=== PATIENT | female | born 1990 | race Caucasian/White ===

== ENCOUNTER 2024-12-24 12:28 | Emergency (ER) | payer OTHER, SELFPAY ==
[2024-12-24 12:30] VITALS: BMI 29.9
[2024-12-24 12:34] VITALS: BP 119/86
[2024-12-24 12:51] LABS: Hematocrit 35.5 % (37.0-47.0); Hemoglobin 10.9 g/dL (12.0-16.0); Mean Corp Hgb Conc. 30.7 g/dL (33.0-37.0); Mean Corpuscular Volume 76.5 fL (81.0-99.0); Nucleated Red Blood Cells % 0 %; Platelet Count 348 10^3/uL (130-400); Red Cell Dist. Width 13.3 % (11.5-14.5)
[2024-12-24 13:02] LABS: ALT (SGPT) 13 U/L (0-35); AST (SGOT) 21 U/L (14-36); Albumin 4.3 g/dl (3.5-5.0); Alkaline Phosphatase 81 U/L (38-126); Blood Urea Nitrogen 17 mg/dl (7-17); Calcium 9.0 mg/dl (8.4-10.2); Carbon Dioxide 20 mmol/L (22-30); Chloride 101 mmol/L (98-107); Estimated Creatinine Clearance 77 ml/min; Glucose 126 mg/dl (70-99); Potassium 3.7 mmol/L (3.5-5.1); Sodium 133 mmol/L (135-145); Total Protein 7.8 g/dl (6.3-8.2); eGFR > 60.00
--- NOTE | 2024-12-24 13:18 | ED.GENMED ---
History of Present Illness
General
Chief Complaint: Vaginal Bleeding
Source: patient and other (assisted guards)
Exam Limitations: none
Time Seen by Provider: 12/24/24 13:12
Nursing documentation reviewed up to this point in time: agreed with
History of Present Illness
History of Present Illness:
Note:
CHIEF COMPLAINT(S)
Severe vaginal bleeding and dizziness.
HISTORY OF PRESENT ILLNESS
The patient is a 34-year-old female who reports experiencing intermittent severe vaginal bleeding, characterized as 'gushing blood,' leading to episodes where she feels dizzy, disoriented, and appears very pale. This bleeding was previously
identified by the [facility] during a physical examination, where a mass on the cervix was noted. The bleeding episodes have been significant enough to cause the patient to sit on the toilet for prolonged periods until the bleeding
ceases. The [facility] by a specific date, which was not facilitated by the [facility]. The patient also mentions having been treated with an antibiotic for an unspecified
vaginal infection, which caused adverse effects.
SOCIAL DETERMINANTS AFFECTING HEALTH
The patient notes challenges in accessing timely healthcare appointments, which were supposed to be arranged but were not completed by the correctional facility.
PHYSICAL EXAM
- General: Alert, no acute distress.
- Skin: Warm, dry.
- Head: Normocephalic, atraumatic.
- Neck: Supple, trachea midline.
- Eye, Ears, Nose, Mouth, and Throat: Oral mucosa moist.
- Cardiovascular: Normal peripheral perfusion, no edema.
- Respiratory: Respirations are non-labored.
- Gastrointestinal: Abdomen nondistended.
-: cervix friable, minimal bleeding noted, cervix closed
- Back: Normal range of motion, normal alignment.
- Musculoskeletal: Normal range of motion, normal strength.
- Neurological: Alert and oriented to person, place, time, and situation, no focal neurological deficit observed.
- Psychiatric: Cooperative, appropriate mood, and affect.
PLAN
1. Perform a physical examination to assess the current status of vaginal bleeding and cervix condition.
2. Consult with Dr. Machado or the attending physician to discuss potential findings and plan care accordingly.
3. Consider infectious etiologies and potential need for culture or further infection workup.
4. Discuss possible follow-up with a biomedical equipment specialist for further evaluation and management of the cervical mass and recurrent bleeding.
5. Ensure appropriate arrangements for subsequent medical appointments to be facilitated by the correctional facility.
DIFFERENTIAL DIAGNOSIS
The Differential Diagnosis includes, in no particular order and is not limited to:
1. Cervical polyp
2. Cervical cancer
3. Cervical ectropion
4. Vaginal infection
5. Endometrial hyperplasia
6. Fibroids
7. Coagulation disorder
8. Hormonal imbalances
9. Cervicitis
10. Trauma to the cervix
CARE-UPDATE
12/24/24 - 14:00
Minimal active bleeding observed during physical exam; cervix noted as very friable. Plan includes follow-up with gynecology oncology at [place] per discussion with Dr. Machado. Referral to Dr. Diaz will be provided by Karlie.
Disposition:
SUMMARY OF ENCOUNTER
The patient, a 34-year-old female, presented to the emergency department with severe vaginal bleeding and dizziness. During the visit, her condition was evaluated and a dose of tranexamic acid was administered to manage the bleeding. The likely
cause of the bleeding was discussed with Dr. Machado, who posited cervical cancer as a potential underlying cause. A follow-up with gynecology oncology was deemed necessary for further evaluation and management of a noted cervical mass.
DISPOSITION
Discharge to assisted.
ASSESSMENT
The vaginal bleeding is likely due to cervical cancer as discussed. Immediate follow-up with gynecologic oncology is recommended.
EMERGENCY TREATMENTS ADMINISTERED
Tranexamic acid was administered to manage acute vaginal bleeding.
MANAGEMENT OF THE PATIENTS CARE WAS DISCUSSED WITH
Dr. Machado, gynecology.
PLAN
The patient is referred to Dr. Diaz at [facility] for follow-up with gynecology oncology. She should continue with tranexamic acid and metronidazole, the latter for previously prescribed management of vaginitis.
MEDICATION RECONCILIATION
1. Tranexamic acid - dose administered in the emergency department.
2. Metronidazole - prescribed previously for vaginitis.
MEDICAL DECISION MAKING
- Complexity of Data Reviewed: Chronic conditions affecting care include intermittent severe vaginal bleeding suspected to be due to cervical cancer. DDx includes cervical polyp, cervical cancer, cervical ectropion, vaginal infection, endometrial
hyperplasia, fibroids, coagulation disorder, hormonal imbalances, cervicitis, trauma to the cervix.
- Data:
Category 3
Discussion of management with Dr. Machado, biomedical equipment specialist.
- Risk: Consideration of Admission/Observation: Although escalation of care was considered due to the potential severity of the underlying condition, the patients symptoms were controlled, and she was deemed stable for discharge. Social
determinants, such as challenges in accessing healthcare appointments, significantly affected her care.
DIAGNOSIS
Vaginal bleeding (ICD-10: N93.9) likely due to cervical cancer (ICD-10: C53.9).
Phy Exam
Physical Exam
Physical Exam:
.
Course
Orders/Labs/Results
Orders:
Orders
12/24/24 12:36
Type And Crossmatch [Type+Screen] Urgent
12/24/24 12:42
CBC/With Diff [Complete Blood Count/With Diff] Urgent
CMP [Comprehensive Metabolic Panel] Urgent
Abnormal Lab Results
12/24/24
12:42
WBC 11.1 H 10^3/uL
(4.8-10.8)
Hgb 10.9 L g/dL
(12.0-16.0)
Hct 35.5 L %
(37.0-47.0)
MCV 76.5 L fL
(81.0-99.0)
MCH 23.5 L pg
(27.0-31.0)
MCHC 30.7 L g/dL
(33.0-37.0)
Absolute Neuts (auto) 9.8 H 10^3/uL
(1.4-6.5)
Absolute Lymphs (auto) 0.7 L 10^3/uL
(1.2-3.4)
Neutrophils % 87.4 H %
(42.2-75.2)
Lymphocytes % 6.3 L %
(20.5-51.1)
Sodium 133 L mmol/L
(135-145)
Carbon Dioxide 20 L mmol/L
(22-30)
Creatinine 1.2 H mg/dL
(0.6-1.0)
Glucose 126 H mg/dl
(70-99)
12/24/24 12:42
12/24/24 12:42
Vital Signs
Initial and Last Documented VS:
Initial Vital Signs
Temp Pulse Resp BP Pulse Ox
99.4 F 118 15 119/86 97
12/24/24 12:34 12/24/24 12:34 12/24/24 12:34 12/24/24 12:34 12/24/24 12:34
Last Documented Vital Signs
Temp Pulse Resp BP Pulse Ox
99.4 F 118 13 119/86 96
12/24/24 12:34 12/24/24 12:35 12/24/24 12:35 12/24/24 12:34 12/24/24 13:18
*Pulse Oximetry
SaO2: 96
Oxygen Mode of Delivery: Room air
Patient hypoxic: no
*Critical Care Note
Total Time (30-74mins, 75-104mins- exclusive of procedures): Not Applicable
ED Attending Note
-
Portions of this chart may have been created with voice recognition software.� Occasional wrong word or��sound alike� substitutions may have occurred due to the inherent limitations of voice recognition software.
Discharge Plan
Departure
Patient Disposition: [facility]
Date of Disposition: 12/24/24
Time of Disposition: 13:56
Patient with high blood pressure during this ER visit?: No
Condition: Fair
Discharge Problem:
Vaginal bleeding
Instructions: Heavy Periods (DC)
Referrals:
[facility] [Family Provider, General]
Chantal Diaz MD [Non-Admitting Privileges, Gynecology] - Follow up in 2-3 days
Activity Restrictions/Additional Instructions:
Continue taking Lysteda, metronidazole. Follow up with Dr. Diaz at [place] as soon as possible.
Interventions
Interventions:
*Risk Screen - Suicide Last Done: 12/24/24 12:30
*General Assessment Last Done: 12/24/24 12:30
*Neglect/Abuse Screening Last Done: 12/24/24 12:30
*ED COVID-19 Vaccine History Last Done: 12/24/24 12:30
*ED Influenza Vaccine History Last Done: 12/24/24 12:30
ED-Female Genitourinary Assessment Last Done: 12/24/24 12:36
Discharge Date and Time
Print Language: KYRGYZ
[2024-12-24] MEDS: CYKLOKAPRON 650 MG PO (14:07)
== END 2024-12-24 15:00 ==
LOC: EMR 12:28
PROVIDERS: Emergency Medicine; EMERGENCY PHYSICIAN Emergency Medicine
DX: N93.9 Abnormal uterine and vaginal bleeding, unspecified (principal)
CPT/HCPCS: 99283; 80053; 85025

== ENCOUNTER 2025-01-07 07:17 | Inpatient (IN) | payer MEDICARE, OTHER, SELFPAY ==
[2025-01-04 09:59] VITALS: BP 113/97
--- NOTE | 2025-01-04 11:20 | ED.GENMED ---
History of Present Illness
<Rashmi Victoria MD, Resident - Last Filed: 01/04/25 15:45>
General
Chief Complaint: Abnormal Lab Value
Source: patient
Time Seen by Provider: 01/04/25 10:02
History of Present Illness
History of Present Illness:
34-year-old female with past medical history of endocarditis treated 8 years ago, herniated disks, and cervical mass currently being worked up outpatient presents to the ER for abnormal lab values outpatient. About 3 months ago, patient noted to
have vaginal bleeding. She was able to visit with a [facility] for examination where they found a mass on the cervix and bacterial vaginosis. She was treated with TXA and metronidazole after which she had significant diarrhea and
generally felt unwell. She came into the ER on December 24 because she felt dizzy, disoriented and appeared very pale. They recommended for her to continue current treatment and she was discharged.
About 1 week ago, the patient started to notice some left foot swelling and pain later having right foot swelling and pain. Then she noticed left knee swelling and pain and left thumb swelling and pain. The pain has been so intense in her
bilateral feet she has had difficulty ambulating. They ran labs while in care home on 12/31/24 and she was found to have a WBC 14.53, ESR 107, hg 8.9 and negative Lymes. SHe was brought in from care home due to abnormal labs.
She endorses 2 days of feeling warm but no recorded fever, some sweats at night, right chest pain with deep inspiration, numbness and tinging in her bilateral feet, left knee, left thumb. She denies any cough, runny nose, sore throat, N/V/D/ab pain,
dysuria, hematuria, melena, hematochezia, blurry vision or weakness.
Past History
<Rashmi Victoria MD, Resident - Last Filed: 01/04/25 15:45>
Past History
ED Past Medical History: Other (endocarditis, herniated disc L2/L3, cervical mass )
ED Past Surgical History: Other (R foot bone spur removal )
Social History
Tobacco: Smoker
Alcohol: None
Drug: IVDA
Living: care home
Family History
Family History: Diabetes, Hypertension and CAD
Review of Systems
<Rashmi Victoria MD, Resident - Last Filed: 01/04/25 15:45>
Review of Systems
Allergies reviewed?: Yes
Constitutional: Reports fatigue and night sweats
EENT: Reports no symptoms
Respiratory: Reports other (right sided chest pain with deep breaths )
Cardiac: Reports no symptoms
ABD/GI: Reports no symptoms
: Reports no symptoms
Musculoskeletal: Reports joint pain, joint swelling and edema
Skin: Reports no symptoms
Neurological: Reports headache
Endocrine: Reports no symptoms
Hematologic/Lymphatic: Reports no symptoms
Phy Exam
<Rashmi Victoria MD, Resident - Last Filed: 01/04/25 15:45>
Physical Exam
Physical Exam:
General: Comfortable, pale, conversant
Head: Atraumatic
Eyes: PERRLA
Cardiac: Regular S1, S2, no murmurs
Respiratory: Clear breath sounds bilaterally
Abdomen: Soft, nontender, nondistended, normal bowel sounds
Extremities: Very minimal bilateral pedal edema, tenderness with palpation of dorsum of bilateral feet, tenderness with dorsiflexion and plantarflexion. Tenderness with flexion extension of the knee. Diffuse tenderness with palpation. Tenderness
to palpation of Interphalangeal joint and movement of left thumb. No marked swelling or erythema of left thumb.
Course
<Rashmi Victoria MD, Resident - Last Filed: 01/04/25 15:45>
Orders/Labs/Results
Orders:
Orders
01/04/25 10:59
CR Finger(s)/thumb Min 2 Vw Lt Urgent
Comment:
Reason For Exam: pain, swelling
CR Foot - Left Min 3 Views Urgent
Comment:
Reason For Exam: pain, swelling
CR Foot - Right Min 3 Views Urgent
Comment:
Reason For Exam: pain, swelling
CR Knee - Left 4 Or More View* Urgent
Comment:
Reason For Exam: pain, swelling
01/04/25 11:07
Complete Blood Count/With Diff Urgent
Comprehensive Metabolic Panel Urgent
PTT Urgent
Prothrombin Time Urgent
01/04/25 11:38
Ibuprofen [Motrin] 600 mg PO NOW STA
01/04/25 14:20
Physical Therapy Consult [Pt Eval And Treat] Urgent
Activity Level: As Tolerated
01/04/25 15:09
CRP [C-Reactive Protein] Routine
Cyclic Citrullinat Pep IgG/IgA [S] Routine
ESR [Erythrocyte Sed Rate] Routine
Rheumatoid Factor [Rheumatoid Agglutinin] Routine
Uric Acid Routine
01/04/25 15:10
Admit/Transfer Patient As Directed
Co-Sign Provider:
Level of Care: Observation services
Assign to:: Medical/Surgical
Physician / Group: Shawna
Diagnosis: polyarthitis
PRN Pain Medication Management As Directed
May give lesser potent ordered pain med per pt: Yes
preference::
Protocol:: Medication orders for pain may be administered in a
manner that supports deferring to patient preference
when the pt is:
- Requesting an ordered lesser potent pain medication.
Least to most potent pain medications are defined
as: acetaminophen < NSAID < tramadol < opioids
(morphine, oxycodone, hydromorphone).
- Requesting a lesser dose of the same medication IF
ORDERED.
- Requesting a less intrusive route of administration
if both routes are prescribed by the provider (PO <
IV).
01/04/25 15:11
Code Status As Directed
Resuscitation Status: Full Code
01/04/25 15:15
Blood Culture Q30M
SUZANNE Source: Blood/Venous
Specimen Description:
01/04/25 15:19
US Legs, Bilateral [US Periph Venous LOWER Ext Jeremy] Urgent
Comment:
Reason For Exam: LE swelling, pain
01/04/25 15:45
Blood Culture Q30M
SUZANNE Source: Blood/Venous
Specimen Description:
Abnormal Lab Results
01/04/25
11:07
RBC 3.72 L 10^6/uL
(4.20-5.40)
Hgb 8.7 L g/dL
(12.0-16.0)
Hct 28.7 L %
(37.0-47.0)
MCV 77.2 L fL
(81.0-99.0)
MCH 23.4 L pg
(27.0-31.0)
MCHC 30.3 L g/dL
(33.0-37.0)
Plt Count 597 H 10^3/uL
(130-400)
Abs Immat Gran (auto) 0.1 H 10^3/uL
(0-0.05)
Absolute Neuts (auto) 7.0 H 10^3/uL
(1.4-6.5)
Lymphocytes % 19.4 L %
(20.5-51.1)
Carbon Dioxide 32 H mmol/L
(22-30)
BUN 20 H mg/dl
(7-17)
Albumin 3.3 L g/dl
(3.5-5.0)
01/04/25 11:07
01/04/25 11:07
Vital Signs
Initial and Last Documented VS:
Initial Vital Signs
Temp Pulse Resp BP Pulse Ox
98.2 F 96 18 113/97 97
01/04/25 09:59 01/04/25 09:59 01/04/25 09:59 01/04/25 09:59 01/04/25 09:59
Last Documented Vital Signs
Temp Pulse Resp BP Pulse Ox
98.2 F 96 18 113/97 97
01/04/25 09:59 01/04/25 09:59 01/04/25 09:59 01/04/25 09:59 01/04/25 11:26
<David De La Rosa MD - Last Filed: 01/04/25 14:28>
Orders/Labs/Results
Orders:
Orders
01/04/25 10:59
CR Finger(s)/thumb Min 2 Vw Lt Urgent
Comment:
Reason For Exam: pain, swelling
CR Foot - Left Min 3 Views Urgent
Comment:
Reason For Exam: pain, swelling
CR Foot - Right Min 3 Views Urgent
Comment:
Reason For Exam: pain, swelling
CR Knee - Left 4 Or More View* Urgent
Comment:
Reason For Exam: pain, swelling
01/04/25 11:07
Complete Blood Count/With Diff Urgent
Comprehensive Metabolic Panel Urgent
PTT Urgent
Prothrombin Time Urgent
01/04/25 11:38
Ibuprofen [Motrin] 600 mg PO NOW STA
01/04/25 14:20
Physical Therapy Consult [Pt Eval And Treat] Urgent
Activity Level: As Tolerated
01/04/25 15:09
CRP [C-Reactive Protein] Routine
Cyclic Citrullinat Pep IgG/IgA [S] Routine
ESR [Erythrocyte Sed Rate] Routine
Rheumatoid Factor [Rheumatoid Agglutinin] Routine
Uric Acid Routine
01/04/25 15:10
Admit/Transfer Patient As Directed
Co-Sign Provider:
Level of Care: Observation services
Assign to:: Medical/Surgical
Physician / Group: Shawna
Diagnosis: polyarthitis
PRN Pain Medication Management As Directed
May give lesser potent ordered pain med per pt: Yes
preference::
Protocol:: Medication orders for pain may be administered in a
manner that supports deferring to patient preference
when the pt is:
- Requesting an ordered lesser potent pain medication.
Least to most potent pain medications are defined
as: acetaminophen < NSAID < tramadol < opioids
(morphine, oxycodone, hydromorphone).
- Requesting a lesser dose of the same medication IF
ORDERED.
- Requesting a less intrusive route of administration
if both routes are prescribed by the provider (PO <
IV).
01/04/25 15:11
Code Status As Directed
Resuscitation Status: Full Code
01/04/25 15:15
Blood Culture Q30M
SUZANNE Source: Blood/Venous
Specimen Description:
01/04/25 15:19
US Legs, Bilateral [US Periph Venous LOWER Ext Jeremy] Urgent
Comment:
Reason For Exam: LE swelling, pain
01/04/25 15:45
Blood Culture Q30M
SUZANNE Source: Blood/Venous
Specimen Description:
Abnormal Lab Results
01/04/25
11:07
RBC 3.72 L 10^6/uL
(4.20-5.40)
Hgb 8.7 L g/dL
(12.0-16.0)
Hct 28.7 L %
(37.0-47.0)
MCV 77.2 L fL
(81.0-99.0)
MCH 23.4 L pg
(27.0-31.0)
MCHC 30.3 L g/dL
(33.0-37.0)
Plt Count 597 H 10^3/uL
(130-400)
Abs Immat Gran (auto) 0.1 H 10^3/uL
(0-0.05)
Absolute Neuts (auto) 7.0 H 10^3/uL
(1.4-6.5)
Lymphocytes % 19.4 L %
(20.5-51.1)
Carbon Dioxide 32 H mmol/L
(22-30)
BUN 20 H mg/dl
(7-17)
Albumin 3.3 L g/dl
(3.5-5.0)
01/04/25 11:07
01/04/25 11:07
Vital Signs
Initial and Last Documented VS:
Initial Vital Signs
Temp Pulse Resp BP Pulse Ox
98.2 F 96 18 113/97 97
01/04/25 09:59 01/04/25 09:59 01/04/25 09:59 01/04/25 09:59 01/04/25 09:59
Last Documented Vital Signs
Temp Pulse Resp BP Pulse Ox
98.2 F 96 18 113/97 97
01/04/25 09:59 01/04/25 09:59 01/04/25 09:59 01/04/25 09:59 01/04/25 11:26
<Rashmi Victoria MD, Resident - Last Filed: 01/04/25 15:45>
MDM/Problems Addressed
Differential Diagnosis Includes:
Pollymigratory arthritis, endocarditis, malignancy, autoimmune condition, clotting disorder
MDM/Problems Addressed:
Assessment:
34-year-old female with history of endocarditis, cervical mass presenting for diffuse and debilitating joint pain.
Plan:
CBC, CMP, PT/INR, x-rays, ESR, CRP to evaluate for any underlying infection, bleeding disorder, fracture, arthritis. No murmurs auscultated however given history of endocarditis and history of IV drug use, this could be high in the differentials.
An additional complicating factor is the cervical mass that is requiring further workup by [facility].
13:52
CBC with normal white cell count, hemoglobin 8.2, Platelets noted to be 597. CMP unremarkable. Left knee x-ray reveals small to moderate joint effusion. Concerns for Pollymigratory arthritis. PT eval and recommended admission due to ambulatory
dysfunction. As patient is unable to ambulate due to pain, will admit for further workup.
<Rashmi Victoria MD, Resident - Last Filed: 01/04/25 15:45>
*Pulse Oximetry
SaO2: 97
Oxygen Mode of Delivery: Room air
Patient hypoxic: no
*Critical Care Note
Total Time (30-74mins, 75-104mins- exclusive of procedures): Not Applicable
Data Reviewed
Review of Other/Old Records Reveals: Labs (WBC 11.1 on 12/24/2024)
Source: patient and records
ED Attending Note
<Rashmi Victoria MD, Resident - Last Filed: 01/04/25 15:45>
-
Portions of this chart may have been created with voice recognition software.� Occasional wrong word or��sound alike� substitutions may have occurred due to the inherent limitations of voice recognition software.
<David De La Rosa MD - Last Filed: 01/04/25 14:28>
ED Attending Note
Patient seen and examined by attending physician: Yes
I performed a history and physical exam of patient and discussed management with resident, I reviewed resident's note and agree with documented findings and plan of care.: Yes
ED Attending Note:
I have seen and evaluated the patient with a [id number] encounter. I have spoken to the [resident] and involved in the medical history, the physical exam, medical decision making.
Evaluation and management service: agree unless noted differently below.
Results interpretation: agree unless noted differently below.
34-year-old woman with newly diagnosed cervical mass presenting to the emergency department with extremity pain. Patient states that she was recently seen for vaginal bleeding and was found to have a cervical mass. She completed TXA. She
completed the TXA she did have some diarrhea which resolved. Since then she has been having bilateral feet left knee left thumb pain. He is also had weakness to her lower extremities with difficulty walking. She states that she had blood work
done at present and was found to have leukocytosis so they sent her here for further evaluation. No fevers chills. No new rashes. No cough congestion runny nose nausea vomiting. Patient does state that she has history of endocarditis. This was
78 years ago. She does state that the symptoms initially started off as weakness so then she was severely ill. She denies any IV drug use. No new tick bites. Per chart review she did have Lyme testing done outpatient which was negative. No
recent falls or traumatic events. She has not seen Sara Granado yet and does not know if she has any malignancy elsewhere.
GENERAL: in no acute distress
HEENT: normocephalic, extraocular movements intact, moist oral mucosa
NECK: normal inspection
RESPIRATORY: no respiratory distress, clear to auscultation bilaterally
CARDIOVASCULAR: regular rate and rhythm
ABDOMEN/: soft, non-distended, non-tender to palpation, no rebound or guarding
EXTREMITIES: non-tender, no edema/swelling, difficulty with range of motion of bilateral feet left knee. No obvious swelling to the feet. Mild swelling to the left knee. No overlying skin changes. Full range of motion at the left thumb.
NEUROLOGIC: awake and alert, moves all extremities
SKIN: warm
34-year-old woman presenting to the emergency department with pain at multiple joints and difficulty walking. On arrival patient is afebrile. Exam does show difficulty with range of motion of the bilateral feet, left knee, left thumb with mild
swelling at the left knee. Differential is broad but given patient's migratory polyarthritis concern for infectious such as endocarditis versus Lyme though negative versus viral. Could be postinfectious or reactive arthritis. History exam not
consistent with septic arthritis. Could be malignancy related. Will check blood work and chest x-rays. Patient will need admission given difficulty ambulating unsafe discharge back to care home. Will give ibuprofen.
Discharge Plan
Departure
Patient Disposition: Admit
Date of Disposition: 01/04/25
Time of Disposition: 15:07
Presentation/result/management discussed w/ accepting MD/DO: Hospitalist
Discharge Problem:
Migratory polyarthritis, Ambulatory dysfunction, History of endocarditis
Interventions
Interventions:
*Risk Screen - Suicide Last Done: 01/04/25 09:59
*General Assessment Last Done: 01/04/25 09:59
*Neglect/Abuse Screening Last Done: 01/04/25 09:59
*ED- Fall Risk Assessment Last Done: 01/04/25 09:59
*ED COVID-19 Vaccine History Last Done: 01/04/25 09:59
*ED Influenza Vaccine History Last Done: 01/04/25 09:59
[2025-01-04 11:23] LABS: Hematocrit 28.7 % (37.0-47.0); Hemoglobin 8.7 g/dL (12.0-16.0); Mean Corp Hgb Conc. 30.3 g/dL (33.0-37.0); Mean Corpuscular Volume 77.2 fL (81.0-99.0); Nucleated Red Blood Cells % 0 %; Platelet Count 597 10^3/uL (130-400); Red Cell Dist. Width 14.1 % (11.5-14.5)
[2025-01-04 11:33] LABS: INR 1.04; PT 13.9 Sec (11.4-14.6)
[2025-01-04 11:34] LABS: APTT 32.4 Sec (23.4-35.0)
[2025-01-04 11:40] LABS: ALT (SGPT) 27 U/L (0-35); AST (SGOT) 29 U/L (14-36); Albumin 3.3 g/dl (3.5-5.0); Alkaline Phosphatase 70 U/L (38-126); Blood Urea Nitrogen 20 mg/dl (7-17); Calcium 8.9 mg/dl (8.4-10.2); Carbon Dioxide 32 mmol/L (22-30); Chloride 101 mmol/L (98-107); Glucose 85 mg/dl (70-99); Potassium 4.6 mmol/L (3.5-5.1); Sodium 140 mmol/L (135-145); Total Protein 6.9 g/dl (6.3-8.2); eGFR > 60.00
[2025-01-04] MEDS: MOTRIN 600 MG PO (11:50)
[2025-01-04 12:08] VITALS: BP 96/84
--- NOTE | 2025-01-04 15:14 | HPS.HSE ---
Family Physician
-
Family Physician: Facility [place] [facility]
Chief Complaint
-
Polyarthritis
History of Present Illness
34yo F with PMHx of IVDA, endocarditis, cervical mass sent to the hospital from long term, where she is staying for violation of her probation sent from the long term due to persistent migratory joint swelling and discoloration as per patient. She described L
ankle swelling, L knee swelling, transient back pain and swelling with discoloration of small hand joints. She also described that it is painful for her to walk due to to the pain. On exam patient can move all extremities, XR showed small/moderate L
knee effusion, however no discoloration or warmth on exam. As per patient this started since she was provided TXA on her visit to 11 days ago for recurrent vaginal bleeding 2/2 previously found cervical mass. She was [facility]. Currently no bleeding reported.
On PT assessment patient was not able to support her weight due to pain in L ankle and knee, PT/OT recommended admisison for ambulatory dysfunction
Medical History
Past Medical History
Past Medical History: Reports Other
Additional Past Medical History:
See above
Past Surgical History: Reports None
Social History
Tobacco: Non-smoker
Alcohol: Occasional
Drug: IVDA
Family History
Family History: Not pertinent
Allergies / Home Medications
Allergies reflects when Allergies were last updated in [facility].
Home Medications with original date entered in [facility]
Allergy/Medication List:
Allergies
Allergy/AdvReac Type Severity Reaction Status Date / Time
No Known Allergies Allergy Unverified 12/24/24 13:57
Home Medications
aspirin 81 mg chewable tablet 81 mg PO DAILY Blood Clot Prevention/Tx 01/04/25
furosemide 20 mg tablet (Lasix) 20 mg PO DAILY Fluid Retention/Swelling 01/04/25
ibuprofen 200 mg tablet (Advil) 600 mg PO TIDPRN PRN mild pain 01/04/25
nortriptyline 10 mg capsule (Pamelor) 10 mg PO HS 01/04/25
Review of Systems
-
History Source: Patient
A 12 point ROS was completed and negative except as noted: Yes
Constitutional: Reports See HPI
Musculoskeletal: Reports See HPI
Physical Exam
Vital Signs
Vital Signs
Temp Pulse Resp BP Pulse Ox
98.2 F 96 18 113/97 97
01/04/25 09:59 01/04/25 09:59 01/04/25 09:59 01/04/25 09:59 01/04/25 11:26
Physical Exam
General: Well Developed, Well Nourished and No Apparent Distress
HEENT: NormoCephalic, Anicteric and Moist mucous membranes
Respiratory: Clear; No Wheezes or Crackles
Cardiac: S1/S2 and Regular Rhythm; No Murmur
GI: Soft, Non Tender and Non Distended
Genito-urinary: No costovertebral tender
Skin: Warm; No Rash or Jaundice
Neuro: Awake, Alert, Oriented and AO x 3
Psych: Calm
Laboratory Results
-
01/04/25 11:07
01/04/25 11:07
Laboratory Results
PT 13.9 Sec (11.4-14.6) 01/04/25 11:07
INR 1.04 01/04/25 11:07
APTT 32.4 Sec (23.4-35.0) 01/04/25 11:07
Total Bilirubin 0.2 mg/dl (0.2-1.3) 01/04/25 11:07
AST 29 U/L (14-36) 01/04/25 11:07
ALT 27 U/L (0-35) 01/04/25 11:07
Alkaline Phosphatase 70 U/L (38-126) 01/04/25 11:07
Data Reviewed
-
Diagnostic Radiology: Report Reviewed by me
Lab Data: Labs Reviewed by me
Impression/Plan
-
A/P:
#Migratory polyarthritis
#L knee swelling
will need outpatient Rheumatologic workup
Continue to use NSAIDs and increase physical activity
Recommend to provide walker for the time of recovery
check DORIE, RF, CCP, uric acid
Will get ortho opinion
PT/OT
#Hx of endocarditis
no fever, no leukocytosis or left shift on current bloodwork
With absent indications for infection and clinical picture inconsistent with septic arthritis (no warmth, redness, and impairment of multiple joints that comes and goes)
Bcx reasonable
#Thrombocytosis
review of blood work showed normal thrombocytes recently
follow up CBC
#Microcytic anemia
2/2 Hx of vaginal bleeding
Iron w/u
#Hx of cervical mass
cont follow up with established specialists
DVT ppx on SCDs
Full code
I have spent at least 78min reviewing chart, test reuslts and providing direct patient care
[2025-01-04 16:44] LABS: Uric Acid 5.8 mg/dl (2.5-6.2)
[2025-01-04 16:47] LABS: C-Reactive Protein 63.80 mg/L (0.0-10.00)
[2025-01-04 18:43] VITALS: BP 105/68; BMI 29.0
[2025-01-04] MEDS: PAMELOR 10 MG PO (21:12)
[2025-01-04] MEDS: TORADOL 10 MG IV (21:15)
[2025-01-04 21:29] LABS: D-Dimer 1.83 ug/mlFEU (0.00-0.50)
--- NOTE | 2025-01-04 22:00 | PTCARENOTE ---
Pt admitted to [facility]. AAOx3. Pt c/o SOB when ambulating and some tightness to the Rt lung. SaO2 95% RA. Lung sounds are diminished to the bases. Pt DDimer was elevated 1.83, ASSET ANALYST notified. Chest CT order.
[2025-01-04 23:13] VITALS: BP 102/62
[2025-01-05 05:42] VITALS: BMI 29.3
[2025-01-05 07:33] VITALS: BP 102/69
[2025-01-05 07:58] LABS: Hematocrit 25.8 % (37.0-47.0); Hemoglobin 7.9 g/dL (12.0-16.0); Mean Corp Hgb Conc. 30.6 g/dL (33.0-37.0); Mean Corpuscular Volume 76.8 fL (81.0-99.0); Nucleated Red Blood Cells % 0 %; Platelet Count 576 10^3/uL (130-400); Red Cell Dist. Width 14.4 % (11.5-14.5); Reticulocyte Count 1.2 % (0.4-2.8)
[2025-01-05 08:15] LABS: ALT (SGPT) 31 U/L (0-35); AST (SGOT) 29 U/L (14-36); Albumin 3.3 g/dl (3.5-5.0); Alkaline Phosphatase 69 U/L (38-126); Blood Urea Nitrogen 23 mg/dl (7-17); Calcium 9.0 mg/dl (8.4-10.2); Carbon Dioxide 30 mmol/L (22-30); Chloride 102 mmol/L (98-107); Estimated Creatinine Clearance 115 ml/min; Glucose 86 mg/dl (70-99); Iron 25 ug/dl (37-170); LDH 139 U/L (120-246); Potassium 4.6 mmol/L (3.5-5.1); Sodium 136 mmol/L (135-145); Total Protein 6.8 g/dl (6.3-8.2); eGFR > 60.00
[2025-01-05 08:24] LABS: Total Iron Binding Capacity 269 ug/dl (265-497)
--- NOTE | 2025-01-05 08:41 | CON.ORTHO ---
Consultation
-
Date/Time Consultation Requested: 01/04/2025; time unknown
Date/Time Consultation Performed: 01/05/2025; 0730
Requesting Provider: Sascha Matos
Performing Provider: Bibiana Finch PA-C for Dr. Anmol Stout
Reason for Consultation: Polyarthralgia; left knee pain and swelling
Consultation - Orthopedics
History
Ms. Mi is a 34 yo F with PMH of IVDA, endocarditis, and cervical mass seen today for evaluation of left knee pain and swelling. She had been having recurrent vaginal bleeding secondary to her cervical mass, and was last seen at for this
problem. She was treated with tranexamic acid at that time. She reports onset of transient pain and swelling in her feet/ankles, left knee, back, right shoulder and hands since that time. She reports her left ankle and left knee remain quite
painful, and she states it is difficult for her to bear weight secondary to the pain. She denies fever, chills or other constitutional symptoms. She denies known PMH of family history of autoimmune conditions.
Allergies / Home Medications
Allergy/AdvReac Type Severity Reaction Status Date / Time
No Known Allergies Allergy Unverified 12/24/24 13:57
�Medication �Instructions �Recorded
aspirin 81 mg chewable tablet 81 mg PO DAILY Blood Clot 01/04/25
Prevention/Tx
furosemide 20 mg tablet (Lasix) 20 mg PO DAILY Fluid 01/04/25
Retention/Swelling
ibuprofen 200 mg tablet (Advil) 600 mg PO TIDPRN PRN mild pain 01/04/25
nortriptyline 10 mg capsule 10 mg PO HS Mental Health/Anxiety 01/04/25
(Pamelor)
Vital Signs / Lab Results
Temp Pulse Resp BP Pulse Ox
98.2 F 79 18 102/69 97
01/05/25 07:33 01/05/25 07:33 01/05/25 07:33 01/05/25 07:33 01/05/25 07:33
01/05/25 07:21
01/05/25 07:21
XR Left Knee IMPRESSION:
No acute osseous abnormality.
Small/moderate joint effusion.
XR Left foot IMPRESSION:
No acute osseous abnormality.
Directed exam of the left knee reveals no obvious erythema, ecchymosis or effusion about the left knee. No tenderness to palpation throughout the knee. Discomfort with ROM from 0-105. Stable to varus and valgus stress. Equivocal [place]. Calf soft
and nontender. No effusion or discoloration about the ankle or foot. Patient able to plantar and dorsiflex ankle with mild discomfort. NVID.
Assessment / Plan
Polyarthralgia; left knee pain and swelling
--Lisa has experienced 11 days of migratory polyarthralgia, most significantly, left knee pain and swelling. Thankfully, I do not appreciate any signs concerning for septic arthritis or internal derangement on exam today. We discussed that her
symptoms are more likely autoimmune in nature. Rheum workup is pending, but CRP and ESR are elevated. Would recommend rheum consult/follow up with rheum. No indication for intervention from orthopedic surgery at this time. Orthopedic surgery will
sign off for now. Please reach out with any additional questions or concerns.
--- NOTE | 2025-01-05 08:57 | W.PN.HOSP.TC ---
Today's Communication/Plan
-
Pulm consult
PT OT
Assessment / Plan
Assessment / Plan
34yo F with PMHx of former IVDA, endocarditis, cervical mass sent to the hospital from care home, where she is staying for violation of her probation sent from the care home due to persistent polyarthritis joint swelling and discoloration as per patient. No
visible changes on exam exept of mild L knee swelling, evaluated by ortho and does not need arthrocentesis since low suspicion for bacterial or inflammatory
A/P:
#Non-inflammatory polyarthritis
#L knee swelling
No leukocytosis and no left shift on CBC
will need outpatient Rheumatologic workup, DORIE sent in hospital
Continue to use NSAIDs and increase physical activity
Recommend to provide walker for the time of recovery
check DORIE, RF, CCP, uric acid
Ortho: no arthrocentesis
PT/OT
Elevated ESR/CRP - follow outpatient
No current indication for Abx
Check hepatitis panel, but AST/ALT WNL
Uric acid WNL
Agreeable for HIV test
#Elevated ddimer
no pulmonary embolism
No LE DVT on US
#Pulmonary nodules
#RUL pneumonitis
seen on CT
Pulm consult
Unclear if needs Abx, suspect recent viral infection. WIth uncertain presentation reasonable to check procalcitonin
#Hx of endocarditis
no fever, no leukocytosis or left shift on current bloodwork
With absent indications for infection and clinical picture inconsistent with septic arthritis (no warmth, redness, and impairment of multiple joints that comes and goes)
Bcx NTD
#Thrombocytosis
review of blood work showed normal thrombocytes recently
follow up CBC
#JATINDER
2/2 Hx of vaginal bleeding
Iron IV
#Hx of cervical mass
cont follow up with established specialists
DVT ppx on SCDs
Full code
I have spent at least 58min reviewing chart, test reuslts and providing direct patient care
Anticipated Discharge: Within 24 hours
Subjective/Interval History
-
Date of Service: January 05, 2025
Objective Data
-
Labs:
Laboratory Results
01/05/25
07:21
WBC 8.9
Hgb 7.9 L
Hct 25.8 L
Plt Count 576 H
Sodium 136
Potassium 4.6
Chloride 102
Carbon Dioxide 30
BUN 23 H
Creatinine 0.8
Glucose 86
Calcium 9.0
Total Bilirubin 0.3
AST 29
ALT 31
Alkaline Phosphatase 69
Vital Signs:
Vital Signs
Temp Pulse Resp BP Pulse Ox
98.2 F 79 18 102/69 97
01/05/25 07:33 01/05/25 07:33 01/05/25 07:33 01/05/25 07:33 01/05/25 07:33
I&O
01/04/25 01/05/25 01/06/25
06:59 06:59 06:59
Intake Total 720 / 720
Balance 720 / 720
Review of Systems
-
History Source: Patient
All other systems: Reviewed and negative
Musculoskeletal: Reports Joint Pain
Physical Exam
-
General: Well Nourished and No Apparent Distress
Cardiac: Regular Rhythm; Negative Murmur
Musculoskeletal: No Clubbing, No Cyanosis and No Edema
Skin: Warm; Negative Rash or Lesions
Neuro: Awake, Alert, Oriented and AO x 3
Psych: Calm
[2025-01-05 09:05] LABS: Ferritin 28.7 ng/ml (6.24-137)
[2025-01-05] MEDS: LOW STRENGTH ASPIRIN 81 MG PO (09:13)
[2025-01-05] MEDS: LASIX 20 MG PO (09:13)
[2025-01-05] MEDS: TORADOL 10 MG IV ×2 (09:17→19:31)
--- NOTE | 2025-01-05 14:35 | CM ---
Addendum entered by Vanessa Gasca 01/05/25 16:04:
guards at bedside
met with patient - Reviewed OBS form with patient, verbalized understanding, placed in cart
Original Note:
patient for pelvic ultrasound currently
IA completed by Karli at [facility]
patient OBS status, CM to have patient sign form
spoke with Karli at [facility], stated they will provide her a walker upon her return as she has been using a walker here.
PCP Dr. David Coronado, [facility] pharmacy
PLAN: return to [facility] when stable
Report #: [phone]
Fax #: [phone]
[facility] to transport
[2025-01-05 14:38] LABS: Hepatitis B Surface Antigen Negative (Negative)
[2025-01-05 14:55] LABS: Hepatitis C Antibody Negative (Negative)
[2025-01-05] MEDS: FERRLECIT 110 MG IV (15:13)
[2025-01-05 15:22] VITALS: BP 105/71
[2025-01-05] MEDS: PAMELOR 10 MG PO (21:18)
--- NOTE | 2025-01-05 22:06 | CON.MD ---
Consultation - Medical
-
34yo G0 who is currently imprisoned for parole violation, was brought in on 01/04 due to swelling of her joints and inability to walk due to pain. Primary team believes this is due to an infectious process. A few days before this started she had
n/v/d and chills. When these symptoms resolved, then her joint swelling started. In addition to this she has also been experiencing vaginal bleeding since September. At times very heavy. She was seen in the [facility] office on 12/21 at which time her Exam
was significant for a very friable, irregular appearing and enlarged cervix that bled profusely with the speculum exam. Pap smear was collected that showed ASC-H/HPV pos. She was prescribed TXA which she took for the 5 days in the retirement and she
says she has had relatively minimal bleeding since taking this.
Of note, patient states that as a teen she had an abnormal pap requiring biopsy and was told she had precancerous cells. No specific f/u was done for this.
PMHx: Endocarditis
PSHx:bone spur
POBHx: G0
SHx: h/o IVDA, no tob. Currently imprisoned
Meds: See Med List
All: NKDA
Vitals and Labs: see below
Gen: nad well appearing
Pelvic US: Uterus 7.5x 3.2x 3cm. EMS 2.2mm. Slightly prominent hypervascular cervical region. Right ovary 2.1cm, Left ovary 2.3cm
A/P: 34yo G0 HD#2
1. Vaginal Bleeding
-Likely related to this cervical lesion. High concern for cervical cancer. Discussed plan of care with Bicycle Designer-Onc specialist. Advised we need tissue diagnosis. Recommend bedside cervical biopsy be performed as soon as possible. Vaginal packing (with
quinteros if needed) can be placed after the biopsy to help with inevitable bleeding. Instrument needed for this is at our office so will need to bring it in and attempt biopsy tomorrow.
-Anemia likely related to prolonged bleeding, patient received iron infusion
-TXA did help with her bleeding. Can be used in the future if needed until diagnosis is made and a firm management plan is decided
2. Polyarthritis
-mgmt per primary team
-patient states she still cannot put weight on her leg.
30 mins spent with patient, review of US, and documentation
Vital Signs / Labs
-
Vital Signs and Labs:
Temp Pulse Resp BP Pulse Ox
98.2 F 85 18 105/71 96
01/05/25 15:22 01/05/25 15:22 01/05/25 15:22 01/05/25 15:22 01/05/25 15:22
01/05/25 07:21
01/05/25 07:21
01/05/25
07:21
RBC 3.36 L
Hgb 7.9 L
Hct 25.8 L
MCV 76.8 L
MCH 23.5 L
MCHC 30.6 L
Plt Count 576 H
Abs Immat Gran (auto) 0.1 H
Immature Gran % 0.8 H
Lymphocytes % 20.0 L
BUN 23 H
Iron 25 L
% Saturation 9 L
Albumin 3.3 L
[2025-01-05 23:05] VITALS: BP 109/67
[2025-01-06 05:50] VITALS: BMI 29.3
[2025-01-06 07:05] VITALS: BP 106/72
--- NOTE | 2025-01-06 07:21 | CON.PUL ---
Consultation
Consultation Request
Date/Time Consultation Requested: 01/05/2025
Date/Time Consultation Performed: 01/06/2025
Medical History
-
Chief Complaint: Lung nodules
History of Present Illness:
Patient is a very pleasant 34-year-old female with prior history of MRSA endocarditis and intravenous drug use who was sent to the hospital from assisted due to persistent polyarthritis and joint swelling. Patient was noted to have anemia and
additional workup included a lower extremity Doppler which was negative for DVT and a CT chest which was negative for pulmonary embolism but showed incidentally micronodules as well as small area of atelectasis versus pneumonitis. Pulmonary
consultation was requested for further input. In view of vaginal bleeding and anemia, patient was evaluated by DRIVER LICENSE AGENT service and had cervical biopsy performed on 01/06.
Past Medical History
Past Medical History: Reports Other
Additional Past Medical History:
See above
Past Surgical History: Reports None
Social History
Tobacco: Patient smoked from age 14 onwards, when not in assisted, close to half pack per day. Occasional marijuana use. Does not use any e-cigarettes. Reports a dog at home. Prior exposure to birds.
Alcohol: Occasional
Drug: IVDA
Family History
Family History: Patient's mother had COPD. No family history of lung cancer.
Allergies / Home Medications
Allergies
Allergy/AdvReac Type Severity Reaction Status Date / Time
No Known Allergies Allergy Unverified 12/24/24 13:57
Home Medications
�Medication �Instructions �Recorded �Confirmed �Last Taken �Type
aspirin 81 mg chewable tablet 81 mg PO DAILY Blood Clot 01/04/25 01/04/25 Unknown History
Prevention/Tx
furosemide 20 mg tablet (Lasix) 20 mg PO DAILY Fluid 01/04/25 01/04/25 Unknown History
Retention/Swelling
ibuprofen 200 mg tablet (Advil) 600 mg PO TIDPRN PRN mild pain 01/04/25 01/04/25 Unknown History
nortriptyline 10 mg capsule 10 mg PO HS Mental Health/Anxiety 01/04/25 01/04/25 Unknown History
(Pamelor)
Review of Systems
-
Hematologic/Lymphatic: Other (All 14 systems reviewed and negative except as stated above in the history of present illness.)
Vitals / Labs / Diagnostic Testing
Vital Signs
Temp Pulse Resp BP Pulse Ox
98.2 F 85 18 105/71 96
01/05/25 15:22 01/05/25 15:22 01/05/25 15:22 01/05/25 15:22 01/05/25 15:22
Lab Data
01/05/25 07:21
01/05/25 07:21
Diagnostic Testing:
Physical Exam
-
HEENT: Normocephalic
Cardiovascular: S1/S2
Respiratory: Clear and Non-Labored Respirations
GI: Soft and Non Distended
Neurology: Awake and Alert
Skin: Warm
General: Comfortable
Assessment
-
#1. Incidental pulmonary nodules
- Small nodules, all below 5 mm.
- Likely sequela of prior h/o MRSA endocarditis with septic pulmonary emboli
- Currently size is too small for PET-CT or needle biopsy
- With prior h/o smoking, and current concern for possibly Cervical malignancy, will need ongoing monitoring as out patient
- Out patient follow up with [facility] Pulmonary clinic, will pursue a [address] chest for further monitoring.
- Small area of pneumonitis is likely atelectasis. Patient is afebrile, normal WBC count and is asymptomatic from Pulmonary stand point. No indication for antibiotics or steroids from Pulmonary perspective
Other medical diagnoses:
- Vaginal bleeding, currently work up in progress with concern for cervical CA
- h/o ADHD and Panic disorder/Anxiety per patient
- Polyarthritis
- Cervical mass
Pulmonary team will sign off, please call as needed.
Total time spent on this consultation/encounter _62___ minutes which includes review of history, physical exam, medications, laboratory data, personal review of imaging, extensive review of outpatient records, discussion with care team and
respiratory therapy.
Data:
CT 12/2024: No evidence of central pulmonary embolism.
Mild cardiomegaly.
Small patchy opacity in the right upper lobe, nonspecific could represent pneumonitis.
Small bilateral pulmonary nodules, as noted above. (3-5 mm)
[facility] Pulmonary Nodule Advisory Board will be automatically informed of the findings.
Venous Doppler LE 12/2024: Negative for DVT
Pelvic US 12/2024: Slightly prominent hypervascular cervical region. Consider correlation with Pap smear.
No uterine mass. Unremarkable endometrium and ovaries.
[2025-01-06] MEDS: PROTONIX 40 MG PO (08:16)
[2025-01-06] MEDS: LASIX 20 MG PO (08:16)
[2025-01-06] MEDS: LOW STRENGTH ASPIRIN 81 MG PO (08:16)
[2025-01-06] MEDS: TORADOL 10 MG IV ×2 (08:20→19:54)
--- NOTE | 2025-01-06 08:48 | W.PN.UPDATE ---
Update Note
Progress Note Update
I saw patient this morning and discussed proceeding with cervical biopsy now that I have th appropriate equipment. Patient is in agreement. I explained that I expect to cause bleeding with this and I will place Monsel's followed by vaginal packing
to help slow that bleeding. Patient gave verbal consent to proceed,
On Speculum exam, the cervix is enlarged and irregularly shaped with prominent vasculature. Biopsy taken from 3 separate sites and placed in formalin jar to be walked down to pathology. Bleeding illicited as expected. Monsel's solution placed
followed by vaginal packing. Patient tolerated well. Explained to patient that packing can sometimes cause urinary outflow obstruction so if she has trouble voiding then we will place a quinteros while the packing is in place. The packing can stay in
for 12-24hrs. If she leaves later on today then we will take the packing out before she is discharged. Otherwise it can be taken out tomorrow morning.
Her nurse was made aware of this.
Specimen will be walked down to Pathology by myself and pathologist made aware to look at this as soon as possible.
--- NOTE | 2025-01-06 10:50 | W.PN.HOSP.TC ---
Today's Communication/Plan
-
with neg infectious w/u and multiple jints involved -reasonable short course of Prednisone
Assessment / Plan
Assessment / Plan
34yo F with PMHx of former IVDA, endocarditis, cervical mass sent to the hospital from [facility]way, where she is staying for violation of her probation sent from the half-way due to persistent polyarthritis joint swelling and discoloration as per patient. No
visible changes on exam except of mild L knee swelling, evaluated by ortho and does not need arthrocentesis since low suspicion for bacterial or inflammatory. Pain started to resolve. Most likely reactive arthritis with recent diarrhea while in
[facility]. ALso developed vaginal bleed and TIRE DUSTER did cervical biopsy on 01/06/25
A/P:
#Non-inflammatory polyarthritis, probably reactive
#L knee swelling
No leukocytosis and no left shift on CBC
will need outpatient Rheumatologic workup, DORIE sent in hospital
Continue to use NSAIDs and increase physical activity
Recommend to provide walker for the time of recovery
check DORIE, RF, CCP, uric acid
Ortho: no arthrocentesis
PT/OT
Elevated ESR/CRP - follow outpatient with wildlife conservation officer
No current indication for Abx
hepatitis panel neg for infection, probably lost immunization to HepB - surf Ab indeterminate - will discuss re-vaccination
AST/ALT WNL
Uric acid WNL
HIV neg
Lyme and Syphilis pending
CHlam/GC urine pending
#Vaginal bleed
TIRE DUSTER consult: s/p biopsy on 01/06/25, further f/u after path results
can use TXA if needed
US TV: Slightly prominent hypervascular cervical region. no mass
#Elevated ddimer
no pulmonary embolism
No LE DVT on US
#Pulmonary nodules
#RUL pneumonitis
seen on CT
Pulm consult
Unclear if needs Abx, suspect recent viral infection. WIth uncertain presentation reasonable to check procalcitonin
#Hx of endocarditis
no fever, no leukocytosis or left shift on current bloodwork
With absent indications for infection and clinical picture inconsistent with septic arthritis (no warmth, redness, and impairment of multiple joints that comes and goes)
Bcx NTD
#Thrombocytosis
review of blood work showed normal thrombocytes recently
follow up CBC
#JATINDER
2/2 Hx of vaginal bleeding
Iron IV
#Hx of cervical mass
cont follow up with established specialists
DVT ppx on SCDs
Full code
I have spent at least 51min reviewing chart, test reuslts and providing direct patient care
Anticipated Discharge: Within 24 hours
Subjective/Interval History
-
Date of Service: January 06, 2025
Objective Data
-
Vital Signs:
Vital Signs
Temp Pulse Resp BP Pulse Ox
98.1 F 74 16 106/72 98
01/06/25 07:05 01/06/25 07:05 01/06/25 07:05 01/06/25 07:05 01/06/25 07:05
I&O
01/05/25 01/06/25 01/07/25
06:59 06:59 06:59
Intake Total 720 / 720 960 / 960
Balance 720 / 720 960 / 960
Review of Systems
-
History Source: Patient
All other systems: Reviewed and negative
Physical Exam
-
General: Well Developed, Well Nourished and No Apparent Distress
Musculoskeletal: No Clubbing, No Cyanosis and No Edema
Neuro: Awake, Alert, Oriented and AO x 3
Psych: Calm
[2025-01-06] MEDS: DELTASONE 20 MG PO (12:00)
[2025-01-06 12:15] LABS: Rheumatoid Agglutinin Less Than 10 IU (<10 IU)
[2025-01-06 12:25] LABS: Lyme Antibody Screen, EIA Negative (Negative)
[2025-01-06] MEDS: FERRLECIT 110 MG IV (13:49)
[2025-01-06 15:00] VITALS: BP 101/64
--- NOTE | 2025-01-06 16:02 | W.PN.OBG.DWH ---
Today's Communication / Plan
-
vag packing removed
pt had spont void
obseve for bleeding
path reviewed with pt. Daniel called and spoke with Subha. Needs f/up with Dr. Diaz at [facility]. Pt aware await final path
Assessment/Plan
-
vaginal bleeding
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
Subjective Data
-
no void yet
nurse attempted to place quinteros
Objective Data
-
Laboratory Results
01/05/25 07:21
01/05/25 07:21
Vital Signs
Temp Pulse Resp BP Pulse Ox
98.1 F 74 16 106/72 98
01/06/25 07:05 01/06/25 07:05 01/06/25 07:05 01/06/25 07:05 01/06/25 07:05
prelim path: sq cell ca
no active bleeding on pad
vag packing removed. no active bleeding
[2025-01-06] MEDS: PAMELOR 10 MG PO (21:17)
[2025-01-06 23:00] VITALS: BP 124/74
[2025-01-07 05:38] VITALS: BMI 29.7
[2025-01-07 06:09] LABS: Hematocrit 27.5 % (37.0-47.0); Hemoglobin 8.4 g/dL (12.0-16.0); Mean Corp Hgb Conc. 30.5 g/dL (33.0-37.0); Mean Corpuscular Volume 74.7 fL (81.0-99.0); Nucleated Red Blood Cells % 0 %; Platelet Count 664 10^3/uL (130-400); Red Cell Dist. Width 14.4 % (11.5-14.5)
[2025-01-07 07:05] VITALS: BP 98/63
[2025-01-07 08:07] LABS: ANA, IgG Reflex to HEp-2 None Detected (None Detected)
--- NOTE | 2025-01-07 08:51 | W.PN.HOSP.TC ---
Today's Communication/Plan
-
Aleve for 5 days
Walker
d/c after IV iron
Assessment / Plan
Assessment / Plan
34yo F with PMHx of former IVDA, endocarditis, cervical mass sent to the hospital from [facility], [facility] she is staying for violation of her probation sent from the [facility] due to persistent polyarthritis joint swelling and discoloration as per patient. No
visible changes on exam except of mild L knee swelling, evaluated by ortho and does not need arthrocentesis since low suspicion for bacterial or inflammatory. Pain started to resolve. Most likely reactive arthritis with recent diarrhea while in
[facility]. ALso developed vaginal bleed and COIN MACHINE COLLECTOR SUPERVISOR did cervical biopsy on 01/06/25 and patient to follow up for her presumed squamous cell CA with outpatient COIN MACHINE COLLECTOR SUPERVISOR onc - referral provided, assisted informed. Pulmonology will follow for pulmonary nodules with
CT, Also reacommended PET - defer to Onc. pain mostly on L knee now, the rest resolved. Medically stable for d/c back to [facility] on 5 days NSAIDs. PPI provided.
A/P:
#Non-inflammatory polyarthritis, probably reactive
#L knee swelling
No leukocytosis and no left shift on CBC
will need outpatient Rheumatologic workup, DORIE sent in hospital
Continue to use NSAIDs and increase physical activity as they helpful. No need for steroids - trial was unremarkable. provide PPI for ppx
Recommend to provide walker for the time of recovery
DORIE neg
RF neg
CCP pending
Ortho: no arthrocentesis
PT/OT
Elevated ESR/CRP - follow outpatient with steam fitter supervisor
No current indication for Abx
hepatitis panel neg for infection, probably lost immunization to HepB - surf Ab indeterminate - will discuss re-vaccination
AST/ALT WNL
Uric acid WNL
HIV neg
Lyme neg
Syphilis pending
CHlam/GC urine neg
#Vaginal bleed
COIN MACHINE COLLECTOR SUPERVISOR consult: s/p biopsy on 01/06/25, further f/u after path results, but prelim: squamous cell carcinoma. Referral to COIN MACHINE COLLECTOR SUPERVISOR Oncology provided
can use TXA if needed
US TV: Slightly prominent hypervascular cervical region. no mass
#Elevated ddimer
no pulmonary embolism
No LE DVT on US
#Pulmonary nodules
#RUL pneumonitis
seen on CT, can be sequela of previous endocarditis, however with new CA - needs further management
Pulm consult: outpatient follow up with possible PET, CT chest to be repeated in 6mo - referral provided
no fevers, no indication for abx as no respiratory symptoms
#Hx of endocarditis
no fever, no leukocytosis or left shift on current bloodwork
With absent indications for infection and clinical picture inconsistent with septic arthritis (no warmth, redness, and impairment of multiple joints that comes and goes)
Bcx NTD
#Thrombocytosis
review of blood work showed normal thrombocytes recently
follow up CBC
#JATINDER
2/2 Hx of vaginal bleeding
Iron IV
#Hx of cervical mass
cont follow up with established specialists
DVT ppx on SCDs
Full code
I have spent at least 51min reviewing chart, test reuslts and providing direct patient care
Anticipated Discharge: Today
Subjective/Interval History
-
Date of Service: January 07, 2025
Objective Data
-
Labs:
Laboratory Results
01/07/25
05:43
WBC 13.1 H
Hgb 8.4 L
Hct 27.5 L
Plt Count 664 H
Vital Signs:
Vital Signs
Temp Pulse Resp BP Pulse Ox
97.9 F 72 16 98/63 98
01/07/25 07:05 01/07/25 07:05 01/07/25 07:05 01/07/25 07:05 01/07/25 07:05
I&O
11/13/25 11/14/25 11/15/25
06:59 06:59 06:59
Intake Total 960 / 960 1919
Balance 960 / 960 1919
Review of Systems
-
History Source: Patient
All other systems: Reviewed and negative
Physical Exam
-
General: Well Developed, Well Nourished and No Apparent Distress
Musculoskeletal: No Clubbing, No Cyanosis and No Edema
Neuro: Awake, Alert, Oriented and AO x 3
Psych: Calm
[2025-01-07] MEDS: DELTASONE PO (08:54)
[2025-01-07] MEDS: LASIX 20 MG PO (09:01)
[2025-01-07] MEDS: NAPROSYN 500 MG PO (09:01)
[2025-01-07] MEDS: LOW STRENGTH ASPIRIN 81 MG PO (09:01)
[2025-01-07] MEDS: PROTONIX 40 MG PO (09:01)
--- NOTE | 2025-01-07 09:02 | W.DCSUMMARY ---
Discharge Summary
Discharge Data
Date of Admission: 01/07/25
Date of Discharge: 01/07/25
-
Pending Results: Yes
Additional Pending Results:
path
Hospital Course
34yo F with PMHx of former IVDA, endocarditis, cervical mass sent to the hospital from [facility], where she is staying for violation of her probation sent from the retirement due to persistent polyarthritis joint swelling and discoloration as per patient. No
visible changes on exam except of mild L knee swelling, evaluated by ortho and does not need arthrocentesis since low suspicion for bacterial or inflammatory. Pain started to resolve. Most likely reactive arthritis with recent diarrhea while in
[facility]. 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 Pulmonology will follow for pulmonary nodules with
CT, Also reacommended PET - defer to Onc. pain mostly on L knee now, the rest resolved. Medically stable for d/c back to [facility] on 5 days NSAIDs. PPI provided. Very minimal vaginal bleeding and spottin on the day of d/c. Able to void spontaneously.
CBC in 1 week fort follow thrombocytosis
I have spent at least 51min reviewing chart, test reuslts and providing direct patient care
Patient was managed for:
#Non-inflammatory polyarthritis, probably reactive
#L knee swelling
#Vaginal bleed
#Cervical squamous cell carcinoma
#Elevated ddimer
#Pulmonary nodules
#RUL pneumonitis
#Hx of endocarditis
#Reactive Thrombocytosis
#JATINDER
#Hx of cervical mass
Discharge Plan
-
Patient Disposition: Retirement
Discharge Diagnosis/Procedures: polyarthritis
Diet: Regular
Activity: As tolerated
Driving Restrictions: As prior to admission
Blood Work: CBC in 1 week
Referrals:
[facility] [Family Provider, General]
Chantal Diaz MD [Non-Admitting Privileges, Gynecology] - in one to two weeks
Referral Note: for cervical cancer
Krystyna Pelletier MD [Active, Pulmonary Medicine] - in six weeks
Kelli Kay MD [Consulting Staff, Rheumatology] - in two to three weeks
Referral Note: polyarthritis
Prescriptions:
New
acetaminophen 325 mg Tablet
650 mg PO Q4HPRN PRN (Reason: mild pain/MCC[place]OUGH/temp> 100.4F) Qty: 90 0RF
sennosides-docusate sodium [Senna Plus] 8.6-50 mg Tablet
1 tab PO BIDPRN PRN (Reason: constipation) Qty: 30 0RF
pantoprazole 40 mg Tablet,Delayed Release (Dr/Ec)
40 mg PO DAILY Qty: 15 0RF
naproxen 500 mg Tablet
500 mg PO BID Qty: 10 0RF
ferrous sulfate 325 mg (65 mg iron) tablet
325 mg PO DAILY Qty: 30 0RF
Continued
nortriptyline [Pamelor] 10 mg Capsule
10 mg PO HS
ibuprofen [Advil] 200 mg Tablet
600 mg PO TIDPRN PRN (Reason: mild pain)
aspirin 81 mg Tablet,Chewable
81 mg PO DAILY
furosemide [Lasix] 20 mg Tablet
20 mg PO DAILY
Discharge Orders:
Discharge Patient (As Directed); Ordered 01/07/25
Ordered By: Sascha Matos
Discharge Date and Time
Print Language: TURKISH
--- NOTE | 2025-01-07 11:55 | CM ---
CM following re: discharge planning.
Reviewed pt's chart, met with pt. Two guards from [facility] at bedside.
Discharge order noted.
Pt is from [facility] and pt will return back there. Guards to transport.
Report #: [phone]
Fax #: [phone]
D/c plan: return back to [facility]. Guards to transport.
[2025-01-07 12:57] LABS: Syphilis/T. pallidum Ab Reflex Negative (Negative)
[2025-01-07] MEDS: FERRLECIT 110 MG IV (13:53)
--- NOTE | 2025-01-07 13:59 | PTCARENOTE ---
Patient has tenderness in Left knee. Patient denies need for pain medication. Patient ambulated to bathroom with walker and took shower. Patient continues with small amount of bloody vaginal discharge, jailene pad in place.
[2025-01-07 15:00] VITALS: BP 116/73
[2025-01-07 19:51] LABS: CCP Antibody IgG/IgA 4 Units (0-19)
== END 2025-01-07 16:57 | DRG 982 ==
LOC: 2 NORTH 07:17
PROVIDERS: ADMITTING PHYSICIAN Internal Medicine; CONSULT PHYSICIAN Internal Medicine; CONSULT PHYSICIAN Obstetrics & Gynecology; CONSULT PHYSICIAN Orthopaedic Surgery; EMERGENCY PHYSICIAN Student in an Organized Health Care Education/Training Program
PROC: 0UCC7ZZ Extirpation of Matter from Cervix, Via Natural or Artificial Opening (ICD-10-PCS; 2025-01-06)
DX: M13.89 Other specified arthritis, multiple sites (principal); J98.11 Atelectasis; F19.11 Other psychoactive substance abuse, in remission; Z86.79 Personal history of other diseases of the circulatory system; Z86.711 Personal history of pulmonary embolism; Z87.891 Personal history of nicotine dependence; D50.9 Iron deficiency anemia, unspecified; C53.9 Malignant neoplasm of cervix uteri, unspecified; D75.838 Other thrombocytosis; J98.4 Other disorders of lung; Z79.82 Long term (current) use of aspirin; Z82.5 Family history of asthma and other chronic lower respiratory diseases; Z86.14 Personal history of Methicillin resistant Staphylococcus aureus infection; F90.9 Attention-deficit hyperactivity disorder, unspecified type; Z79.899 Other long term (current) drug therapy
CPT/HCPCS: 71046; 71275; 73140; 73564; 73630; 76830; 76856; 80053; 82728; 83540; 83550; 83615; 84550; 85025; 85045; 85379; 85610; 85652; 85730; 86038; 86140; 86200; 86430; 86618; 86704; 86706; 86780; 86803; 87040; 87070; 87340; 87389; 87491; 87591; 88305; 88341; 88342; 93970; 99285; 99406; J2916; Q9967